=== PATIENT | male | born 1935 | race Caucasian/White ===

== ENCOUNTER → 2018-07-28 | Outpatient (CLI) | payer MEDICARE, OTHER ==
--- NOTE | ~2018-07-28 | EEG ---
[address] [address] EEG STUDY REPORT Name: BRIDGET FELDMAN Room: [facility]#: [id number] Admission: 07/28/18 Attend Phys: Marvin Little DO Discharge: Date of : 39 Report #: [id number] THIS REPORT FOR: //name// CC: Marvin Little DATE OF SERVICE: 07/28/2018 This patient is being evaluated for dizziness. EEG was done by placing the electrode by standard 10-20 system of electrode placement. Both referential and sequential montages were used for recording. Background activity in this patient's EEG is about 10 Hz and 30 microvolt. The patient went to sleep and that is associated with bilateral slowing and vertex sharp waves. Photic stimulation was unremarkable. Throughout the record, no active epileptiform activity was noticed. IMPRESSION: This patient's EEG is unremarkable. Thank you very much for this referral. By: [id number] Barraza MD /antoni
== END ==
LOC: M.ULTRA 07-11 10:13
DX: G45.9 Transient cerebral ischemic attack, unspecified (principal); J32.0 Chronic maxillary sinusitis; R42 Dizziness and giddiness; M47.812 Spondylosis without myelopathy or radiculopathy, cervical region